=== PATIENT | female | born 1975 | race Caucasian/White ===

== ENCOUNTER → 2019-04-23 07:39 | Outpatient (CLI) | payer OTHER ==
--- NOTE | 2019-04-23 08:49 | NUR ---
TIME OUT AT 0830 USING NAME PROCEDURE CORRECT SIDE AND ALLERGIES. PERFORMED BY DR KEVIN PLATT
== END | disposition home or self-care (01) ==
LOC: D.RAD 07:39
PROVIDERS: ATTEND Orthopaedic Surgery
DX: M24.159 Other articular cartilage disorders, unspecified hip (principal)

== ENCOUNTER → 2019-05-13 10:13 | Outpatient (CLI) | payer OTHER ==
--- NOTE | ~2019-05-13 | HEMODYNAMI ---
PATIENT:FLO ENAMORADO MEDICAL RECORD: [id number] : 77 LOCATION:[facility] ADMISSION DATE: 05/13/19 Generatedon:05/13/201912:13 Patient name: FLO ENAMORADO Patient #: [id number] SSN: : 1975 Date of study: 05/13/2019 Page: Of Hemodynamic Procedure Report Patient Data Patient Demographics Procedure consent was obtained First Name: FLO Gender: Female Last Name: FEI : 1975 Patient #: [id number] Age: 44 year(s) Race: Unknown Additional ID: [id number] Contact details Address: [address] [place] [address] State: [place] [facility] Zip code: [address] Past Medical History Allergies Allergen Reaction Date Comments Reported Other allergy 05/13/2019 adhesives Admission Admission Data Admission Date: 05/13/2019 Admission Time: 10:13 Procedure Procedure Types Cath Procedure Peripheral Cath Diagnostic Procedure Miscellaneous Aspiration/Injection (Joint) Procedure Description Procedure Date Procedure Date: 05/13/2019 Procedure Start Time: 12:00 Procedure End Time: 12:13 Procedure Staff Name Function John Wang MD Performing Physician WOJCIECH PATTEN RT Monitor Procedure Data Cath Procedure Fluoroscopy Diagnostic fluoroscopy Total fluoroscopy Time: 0.2 time: 0.2 min min Diagnostic fluoroscopy Total fluoroscopy dose: 2 dose: 2 mGy mGy Hemodynamics Rest Pre Cath Intra NCS Post Cath Procedure Log Time Note 10:52:46 SAFE-T PLUS MYELOGRAM TRAY opened to sterile field. 11:06:25 WOJCIECH PATTEN RT (R) sent for patient. Start room use. 11:06:27 Time tracking: Regular hours (M-F 7:00 - 5:00) 11:06:33 Patient received from Outpatients to IR Alert and oriented. Tansferred to table in Supine position. 11:06:35 Signed procedure consent form obtained from patient. 11:06:36 Warm blankets applied, and mera hugger turned on for patient comfort. 11:06:37 Correct patient and procedure confirmed by team. 11:06:37 - 11:06:40 Pre-procedure instructions explained to patient. 11:06:41 Pre-op teaching completed and patient verbalized understanding. 11:07:06 Patient allergic to Other allergy adhesives 11:07:15 Is patient on blood thinner?No 11:08:04 Is the patient allergic to Iodine/contrast media? No. 11:17:53 - 11:54:39 Physician arrived 11:58:23 --------ALL STOP TIME OUT------ 11:59:25 Left Hip was prepped with betadine and draped in sterile fashion. 12:00:03 Procedure started. 12:00:03 Full Disclosure recording started 12:00:11 Local anesthetic to Left Hip with Lidocaine 1% by John Wang MD.INITIAL ACCESS ONLY 12:08:53 Procedure ended.(Physican Out) 12:10:55 Fluoroscopy time 00.20 minutes. 12:11:22 Fluoroscopy dose: 2 mGy 12:11:22 Flurop Dose total: 2 12:12:04 Post Left Hip:stable, clean and dry. bandaid applied and patient sent home 12:12:23 Procedure and supply charges have been captured, reviewed, submitted an d are correct. 12:13:02 Procedure ended. 12:13:02 Full Disclosure recording stopped Device Usage Item Name Manufacture Quantity Catalog Hospital Part Current Minimal Lot# / Number Charge Number Stock Stock Serial# Code SAFE-T [employer] 1 [id number] PLUS MYELOGRAM TRAY Signature Audit Fossil Stage Time Signature Unsigned Intra-Procedure 05/13/2019 WOJCIECH PATTEN RT 12:13:55 PM (R) [facility] [address] [place] [address]
== END | disposition home or self-care (01) ==
LOC: D.RAD 10:13
PROVIDERS: ATTEND Clinical Nurse Specialist Family Health
DX: M25.552 Pain in left hip (principal)